=== PATIENT | male | born 1975 | race Caucasian/White ===

== ENCOUNTER 2021-03-13 13:46 | Inpatient (IN) | payer BC ==
[~2021-03-13] VITALS: Ht 193 cm; Wt 124.7 kg
[~2021-03-13 13:46] MED LIST: ALBU90OI INH
[2021-03-13 14:50] LABS: BASOPHILS PERCENT AUTO 0 % (0-2); EOSINOPHILS PERCENT AUTO 0 % (0-6); Hematocrit 43.2 % (37.0-53.0); Hemoglobin 15.3 g/dL (13.5-17.5); IMMATURE GRAN ABSOLUTE AUTO 0.03 K/mm3 (0.00-0.10); IMMATURE GRAN PERCENT AUTO 1 % (0-1); LYMPHOCYTES ABSOLUTE AUTO 0.38 K/mm3 (0.84-5.20); LYMPHOCYTES PERCENT AUTO 8 % (21-46); MONOCYTES PERCENT AUTO 4 % (4-13); Mean Corpuscular HGB 30.1 pg (26.0-34.0); Mean Corpuscular HGB Conc 35.4 g/dL (31.5-36.5); Mean Corpuscular Volume 85 fL (80-100); Mean Platelet Volume 9.7 fL (9.1-12.4); NEUTROPHILS ABSOLUTE AUTO 4.46 K/mm3 (1.96-9.15); NEUTROPHILS PERCENT AUTO 88 % (41-73); Platelet Count 171 K/mm3 (150-400); RDW Coefficient Variation 11.7 % (11.7-14.2); RDW Standard Deviation 35.8 fL (35.1-46.3); Red Blood Cell Count 5.09 M/mm3 (4.30-5.90); White Blood Cell Count 5.07 K/mm3 (4.00-11.30)
[2021-03-13 15:11] LABS: Alanine Aminotransfer (ALT/SGP 50 U/L (12-78); Albumin, Blood 3.1 g/dL (3.4-5.0); Albumin/Globulin Ratio 0.8 (0.8-1.8); Alk Phos 68 U/L (50-136); Anion Gap 6 mmol/L (6-16); Aspartate Aminotrans (AST/SGOT 63 U/L (12-37); Bilirubin, Total 0.5 mg/dL (0.1-1.0); Blood Urea Nitrogen 14 mg/dL (8-24); Bun/Creatinine Ratio 13.7 (12.0-20.0); CO2, Blood 24 mmol/L (21-32); Calcium, Blood 8.7 mg/dL (8.5-10.1); Chloride, Blood 101 mmol/L (98-108); Creatinine, Blood 1.02 mg/dL (0.60-1.20); Globulin, Blood 4.1 g/dL (2.2-4.0); Glomerular Filtration Rate >60 (60-); Glucose, Blood 106 mg/dL (70-99); Magnesium, Blood 2.1 mg/dL (1.6-2.4); Potassium, Blood 3.9 mmol/L (3.5-5.5); Sodium, Blood 131 mmol/L (136-145); Total Protein, Blood 7.2 g/dL (6.4-8.2); Troponin I <0.015 ng/mL (0.000-0.040)
[2021-03-13] MEDS ORDERED: TERB250 PO (15:50)
[2021-03-13] MEDS ORDERED: Ventolin5 MG/1 ML NEB (15:53)
[2021-03-13 16:59] LABS: PCO2 Arterial 30 mmHg (35-45); PO2 Arterial 69 mmHg (80-100); pH Blood Arterial 7.48 (7.35-7.45)
--- NOTE | 2021-03-13 18:30 | NUR ---
SHIFT SUMMARY PATIENT IS AN ADMIT FROM ER WHOM ARRIVED APPROX 1750. STARTED THE FIRST COURSE OF REMDESIVIR TODAY. NORMAL SALINE RUNNING 75ML/HR. PATIENT IS RESTING COMFORTABLY IN ROOM. PATIENT ORIENTED TO ROOM AND CALL LIGHT. PATIENT HAS NO ACUTE RESPIRATORY DISTRESS. PATIENT IS SATTING LOW 90S ON 6 LITERS OF OXYGEN.
[2021-03-14 04:31] LABS: Hematocrit 40.6 % (37.0-53.0); Hemoglobin 14.4 g/dL (13.5-17.5); Mean Corpuscular HGB 29.9 pg (26.0-34.0); Mean Corpuscular HGB Conc 35.5 g/dL (31.5-36.5); Mean Corpuscular Volume 84 fL (80-100); Mean Platelet Volume 9.5 fL (9.1-12.4); Platelet Count 168 K/mm3 (150-400); RDW Coefficient Variation 11.8 % (11.7-14.2); RDW Standard Deviation 36.2 fL (35.1-46.3); Red Blood Cell Count 4.81 M/mm3 (4.30-5.90); White Blood Cell Count 4.51 K/mm3 (4.00-11.30)
[2021-03-14 04:55] LABS: Alanine Aminotransfer (ALT/SGP 54 U/L (12-78); Albumin, Blood 2.7 g/dL (3.4-5.0); Albumin/Globulin Ratio 0.7 (0.8-1.8); Alk Phos 66 U/L (50-136); Anion Gap 8 mmol/L (6-16); Aspartate Aminotrans (AST/SGOT 64 U/L (12-37); Bilirubin, Total 0.4 mg/dL (0.1-1.0); Blood Urea Nitrogen 13 mg/dL (8-24); Bun/Creatinine Ratio 15.2 (12.0-20.0); CO2, Blood 23 mmol/L (21-32); Calcium, Blood 7.9 mg/dL (8.5-10.1); Chloride, Blood 103 mmol/L (98-108); Creatinine, Blood 0.85 mg/dL (0.60-1.20); Globulin, Blood 4.1 g/dL (2.2-4.0); Glomerular Filtration Rate >60 (60-); Glucose, Blood 114 mg/dL (70-99); Magnesium, Blood 2.1 mg/dL (1.6-2.4); Potassium, Blood 4.2 mmol/L (3.5-5.5); Sodium, Blood 134 mmol/L (136-145); Total Protein, Blood 6.8 g/dL (6.4-8.2)
--- NOTE | 2021-03-14 05:55 | NUR ---
SUMMARY PT HAS SOME ANGELO GOING TO BATHROOM. PT ENCOURAGED TO USE URINAL NEEDED. PT IS ON 6LPM O2. NO FEVERS NOTED THIS SHIFT. PT HAD SOME NOTED INCREASED ANXIETY AT TIMES. PT STATES HE IS CONCERNED ABOUT HAVING COVID. PT WAS ABLE TO RELAX AND SLEEP WELL FOR REMAINDER OF SHIFT. PT CURRENTLY SLEEPING AND IN NO DISTRESS. CALL LIGHT IN REACH.
--- NOTE | 2021-03-14 11:32 | NUR ---
Spiritual care visit provided and although the patient wasn't interested in prayer or discussion of anything of a confucianism nature, I did encourage him that he was doing well and he was in the right place to receive the care he needed. He thanked me for the visit and we left it at that.
--- NOTE | 2021-03-14 17:15 | NUR ---
SHIFT SUMMARY PATIENT ALERT AND ORIENTED THROUGHOUT THIS SHIFT. PATIENT INDEPENDENT IN THE ROOM. PATIENT HAS BEEN SITTING UP IN BED THROUGHOUT THIS SHIFT. PATIENT MAINTAINING O2 SAT >90 ON 5L O2 NC. NO ACUTE CHANGES THIS SHIFT. VSS.
[2021-03-15 05:23] LABS: Hematocrit 42.9 % (37.0-53.0); Hemoglobin 14.4 g/dL (13.5-17.5); Mean Corpuscular HGB 29.4 pg (26.0-34.0); Mean Corpuscular HGB Conc 33.6 g/dL (31.5-36.5); Mean Corpuscular Volume 88 fL (80-100); Mean Platelet Volume 9.6 fL (9.1-12.4); Platelet Count 221 K/mm3 (150-400); RDW Standard Deviation 38.5 fL (35.1-46.3); White Blood Cell Count 5.16 K/mm3 (4.00-11.30)
[2021-03-15 05:55] LABS: Alanine Aminotransfer (ALT/SGP 68 U/L (12-78); Albumin, Blood 2.8 g/dL (3.4-5.0); Albumin/Globulin Ratio 0.7 (0.8-1.8); Alk Phos 63 U/L (50-136); Anion Gap 7 mmol/L (6-16); Aspartate Aminotrans (AST/SGOT 55 U/L (12-37); Bilirubin, Direct 0.2 mg/dL (0.0-0.3); Bilirubin, Indirect 0.2 mg/dL (0.1-0.7); Bilirubin, Total 0.4 mg/dL (0.1-1.0); Blood Urea Nitrogen 19 mg/dL (8-24); Bun/Creatinine Ratio 19.4 (12.0-20.0); CO2, Blood 28 mmol/L (21-32); Calcium, Blood 8.5 mg/dL (8.5-10.1); Chloride, Blood 102 mmol/L (98-108); Creatinine, Blood 0.98 mg/dL (0.60-1.20); Globulin, Blood 4.1 g/dL (2.2-4.0); Glomerular Filtration Rate >60 (60-); Glucose, Blood 116 mg/dL (70-99); Phosphorus, Blood 3.7 mg/dL (2.5-4.9); Potassium, Blood 4.4 mmol/L (3.5-5.5); Sodium, Blood 137 mmol/L (136-145); Total Protein, Blood 6.9 g/dL (6.4-8.2)
[2021-03-16 11:55] LABS: BASOPHILS ABSOLUTE AUTO 0.01 K/mm3 (0.00-0.23); BASOPHILS PERCENT AUTO 0 % (0-2); EOSINOPHILS PERCENT AUTO 0 % (0-6); Hematocrit 43.3 % (37.0-53.0); IMMATURE GRAN ABSOLUTE AUTO 0.04 K/mm3 (0.00-0.10); IMMATURE GRAN PERCENT AUTO 1 % (0-1); LYMPHOCYTES ABSOLUTE AUTO 0.42 K/mm3 (0.84-5.20); LYMPHOCYTES PERCENT AUTO 6 % (21-46); MONOCYTES ABSOLUTE AUTO 0.67 K/mm3 (0.16-1.47); MONOCYTES PERCENT AUTO 9 % (4-13); Mean Corpuscular HGB Conc 34.6 g/dL (31.5-36.5); Mean Corpuscular Volume 87 fL (80-100); Mean Platelet Volume 9.3 fL (9.1-12.4); NEUTROPHILS ABSOLUTE AUTO 6.26 K/mm3 (1.96-9.15); NEUTROPHILS PERCENT AUTO 85 % (41-73); Platelet Count 268 K/mm3 (150-400); RDW Standard Deviation 38.3 fL (35.1-46.3)
[2021-03-16 12:19] LABS: Alanine Aminotransfer (ALT/SGP 79 U/L (12-78); Albumin, Blood 2.8 g/dL (3.4-5.0); Albumin/Globulin Ratio 0.7 (0.8-1.8); Alk Phos 66 U/L (50-136); Anion Gap 6 mmol/L (6-16); Aspartate Aminotrans (AST/SGOT 50 U/L (12-37); Bilirubin, Total 0.6 mg/dL (0.1-1.0); Blood Urea Nitrogen 21 mg/dL (8-24); Bun/Creatinine Ratio 25.2 (12.0-20.0); CO2, Blood 28 mmol/L (21-32); Calcium, Blood 8.2 mg/dL (8.5-10.1); Chloride, Blood 103 mmol/L (98-108); Creatinine, Blood 0.83 mg/dL (0.60-1.20); Glomerular Filtration Rate >60 (60-); Glucose, Blood 111 mg/dL (70-99); Magnesium, Blood 2.3 mg/dL (1.6-2.4); Potassium, Blood 4.2 mmol/L (3.5-5.5); Sodium, Blood 137 mmol/L (136-145); Total Protein, Blood 6.8 g/dL (6.4-8.2)
--- NOTE | 2021-03-17 05:07 | NUR ---
SUMMARY PT REMAINS ON 15 LPM. SPO2 >95% THIS AM. PT ANXIETY REDUCED W/ MEDICATION. PT C/O DIARRHEA AND TX PER EMAR. PT CONTINUES TO GET SOB W/ EXERTION. PT SLEPT OFF AND ON T/O SHIFT. PT CURRENTLY SLEEPING AND IN NO DISTRESS. CALL LIGHT IN REACH.
--- NOTE | 2021-03-17 05:51 | NUR ---
THIS AM PT REPORTS FEELING FATIGUED. PT STATES HE FEELS HE IS NOT SLEEPING AT ALL. PT MIGHT BENEFIT FROM A DIFFERENT SLEEP AID. PT REPORTS ANXIETY IS REDUCED BUT STILL APPEARS ANXIOUS.
--- NOTE | 2021-03-18 06:07 | NUR ---
SHIFT SUMMARY A/OX4, IND TO BATHROOM. CURRENTLY ON 15L HIGH FLOW WITH SATS GREATER THAN 90. C/O DIFFICULTY SLEEPING T/O NIGHT. VSS, NO ACUTE CHANGES AT THIS TIME. BED IN LOWEST POSITION WITH CALL LIGHT IN REACH. WILL CONTINUE TO MONITOR AND REPORT TO ONCOMING RN.
--- NOTE | 2021-03-18 16:56 | NUR ---
SHIFT SUMMARY PATIENT IS A/O, INDEPENDENT IN THE ROOM. PATIENT DOWN TO 12L O2 HIGH FLOW NC FROM 15L, SATS IN THE MID 90S. NO ACUTE CHANGES THIS SHIFT. PATIENT UP IN THE ROOM WALKING SEVERAL TIMES THIS SHIFT. PATIENT CURRENTLY SITTING UP IN BED WATCHING HIS TABLET.
--- NOTE | 2021-03-19 06:00 | NUR ---
SHIFT SUMMARY: AOX3, 1 ASSIST, USES URINAL AT BEDSIDE INDEPENDENTLY. DENIES PAIN. LUNG SOUNDS CRACKLES T/O. ABLE TO TAKE SOME DEEP BREATHS, COUGH IS PRODUCTIVE OCCATIONALLY. ON 15L OXIMIZER. DYSPNEA WITH LITTLE MOVEMENT. DID STATES HE HAS GOTTEN UP IN THE ROOM AND WILL DROP SOME BUT HE IS RECOVERING QUICKER. ENCOURAGED SMALL MOVEMENTS TO BUILD UP HIS ENDURANCE. CURRENTLY HOLDING 94-95%. VSS, AFEBRILE. SPOKE TO MOTHER ON PHONE, ARRANGED FOR HER TO CALL AT NIGHT ONLY, IF SHE WANTS INFORMATION DURING THE DAY SHE IS TO CALL HER SON, SHE VERBALIZED UNDERSTANDING OF THIS. CALL LIGHT IS IN REACH.
--- NOTE | 2021-03-19 19:34 | NUR ---
PT ALERT AND ORIENTED X4. REMAINS ON 15L WITH OXEMIZER. DESATS WHEN AMBULATING, RECOVERS 90% AND ABOVE. WILL CONT. TO MONITOR.
[2021-03-20 05:46] LABS: BASOPHILS ABSOLUTE AUTO 0.02 K/mm3 (0.00-0.23); BASOPHILS PERCENT AUTO 0 % (0-2); EOSINOPHILS ABSOLUTE AUTO 0.16 K/mm3 (0.00-0.68); EOSINOPHILS PERCENT AUTO 3 % (0-6); Hemoglobin 14.7 g/dL (13.5-17.5); IMMATURE GRAN ABSOLUTE AUTO 0.14 K/mm3 (0.00-0.10); IMMATURE GRAN PERCENT AUTO 2 % (0-1); LYMPHOCYTES ABSOLUTE AUTO 0.81 K/mm3 (0.84-5.20); LYMPHOCYTES PERCENT AUTO 13 % (21-46); MONOCYTES ABSOLUTE AUTO 0.72 K/mm3 (0.16-1.47); MONOCYTES PERCENT AUTO 12 % (4-13); Mean Corpuscular HGB 29.9 pg (26.0-34.0); Mean Corpuscular HGB Conc 34.2 g/dL (31.5-36.5); Mean Corpuscular Volume 87 fL (80-100); Mean Platelet Volume 9.1 fL (9.1-12.4); NEUTROPHILS ABSOLUTE AUTO 4.37 K/mm3 (1.96-9.15); NEUTROPHILS PERCENT AUTO 70 % (41-73); Platelet Count 395 K/mm3 (150-400); RDW Coefficient Variation 11.8 % (11.7-14.2); RDW Standard Deviation 37.8 fL (35.1-46.3); Red Blood Cell Count 4.92 M/mm3 (4.30-5.90); White Blood Cell Count 6.22 K/mm3 (4.00-11.30)
[2021-03-20 06:19] LABS: Anion Gap 6 mmol/L (6-16); Blood Urea Nitrogen 20 mg/dL (8-24); Bun/Creatinine Ratio 19.2 (12.0-20.0); CO2, Blood 27 mmol/L (21-32); Calcium, Blood 8.7 mg/dL (8.5-10.1); Chloride, Blood 103 mmol/L (98-108); Creatinine, Blood 1.04 mg/dL (0.60-1.20); Glomerular Filtration Rate >60 (60-); Glucose, Blood 92 mg/dL (70-99); Potassium, Blood 4.2 mmol/L (3.5-5.5); Sodium, Blood 136 mmol/L (136-145)
--- NOTE | 2021-03-20 06:59 | NUR ---
SHIFT SUMMARY: CONTINUES TO BE ON 15 LITERS OXIMIZER. DOES DESAT IN AM UPON WAKING DUE TO STUFFY NOSE AND PHLYEM. ONCE HE CLEARS IT OUT SATS DO GO UP. TOLERATING MORE MOVEMENT IN THE ROOM WITH HEALTHY DESATS AND QUICK RECOVERY. LUNG SOUNDS STILL CRACKLES MID TO LOWER LOBES. ENCOURAGED DEEP BREATHING WHILE IN BED AND LAYING ON SIDE. NO OTHER ACUTE CHANGES TO NOTE. CALL LIGHT IN REACH.
--- NOTE | 2021-03-20 19:44 | NUR ---
SUMM- PT INDEPENDANT IN ROOM, GETS UP TO CHAIR AND BATHROOM. NO SOB WITH ACTIVITY. ABLE TO DECREASE OXIMIZER FROM 15L TO 8L. FAINT CX IN BASES, COUGHING UP CLEAR [place]/FAITH SECRETIONS. USES SALINE FOR NOSE AND BLOWS NOSE. TOLERATING FOOD AND FLUID.
--- NOTE | 2021-03-21 05:41 | NUR ---
SHIFT SUMMARY: DECREASE IN OXYGEN USE TO 8 LITERS ON OXIMIZER. SATS HOLDING AT 94% AND HIGHER. IS ABLE TO MOVE WITH NO DESATING. LUNG SOUNDS HAVE IMPROVED, VERY FINE CRACKLES SCATTERED T/O. VERY LITTLE PRODUCTION OF COUGH. BUILDING ENDURANCE ON HIS OWN AND WITH PT. NO ACUTE CHANGES THIS SHIFT. CALL LIGHT IN REACH.
--- NOTE | 2021-03-21 20:51 | NUR ---
SUMM- PT INDEPENDANT IN ROOM. RESP EVEN UNLABORED. AMBULATES IN ROOM, TOOK SHOWER, MIN SOB. LUNGS WITH FAINT CX BASES, OXYMIZER DOWN TO 6L, SATTING MID 90'S. TOLERATING FOOD AND FLUIDS.
--- NOTE | 2021-03-22 07:50 | NUR ---
SHIFT SUMMARY: NO ACUTE CHANGES. DOWN TO 5 L OXIMIZER HOLDING MID-90'S. WAS IN THE 80'S THIS AM DUE TO STUFFED UP NOSE, TYPICALLY CLEARS AFTER HE CLEARS HIS NOSE. ABLE TO SLEEP ON HIS BACK WITH NO ISSUES. IS READY TO GO HOME WITH HOME O2. VS WNL. CALL LIGHT IN REACH.
[2021-03-22] MEDS ORDERED: APHEN325 M1 PO (14:59)
[2021-03-22] MEDS ORDERED: Q-Tussin100 MG/5 M PO (15:00)
[2021-03-22] MEDS ORDERED: GUAI600T33 PO (15:02)
[2021-03-22] MEDS ORDERED: NASAL SPRAY88 ML (15:02)
--- NOTE | 2021-03-22 16:54 | NUR ---
HOME O2 STUDY. PT SATS 88% AT REST ON 0 LPM. PT O2 SATS ON NO OXYGEN WHEN UP AMBULATING 92%. PT REPORTS HE WANTS HOME O2 DUE TO COVID DIAGNOSIS AND SOB WITH EXERTION.
--- NOTE | 2021-03-22 16:56 | NUR ---
DC NOTE: PT DISCHARGED HOME WITH PORTABLE O2 TANK. PT DC INSTRUCTIONS REVIEWED. PT VU. PT BELONGINGS WITH PT. PT ESCORTED TO POV VIA WC, PICKED UP AT [facility] WITHOUT INCIDENT.
== END 2021-03-22 16:43 | disposition home or self-care (01) | DRG 871 ==
LOC: ER 13:46 → MEDS 16:01
PROVIDERS: Nurse Practitioner Acute Care; Student in an Organized Health Care Education/Training Program; ADMIT Internal Medicine
PROC: 8E0ZXY6 Isolation (ICD-10-PCS; principal; 2021-03-13)
PROC: XW033E5 Introduction of Remdesivir Anti-infective into Peripheral Vein, Percutaneous Approach, New Technology Group 5 (ICD-10-PCS; 2021-03-13)
PROC: 3E0333Z Introduction of Anti-inflammatory into Peripheral Vein, Percutaneous Approach (ICD-10-PCS; 2021-03-13)
DX: A41.89 Other specified sepsis (principal); J96.01 Acute respiratory failure with hypoxia; U07.1 COVID-19; J12.89 Other viral pneumonia; E87.1 Hypo-osmolality and hyponatremia; Z90.49 Acquired absence of other specified parts of digestive tract; Z79.899 Other long term (current) drug therapy; R65.20 Severe sepsis without septic shock; Z68.33 Body mass index [BMI] 33.0-33.9, adult; R94.5 Abnormal results of liver function studies; F41.9 Anxiety disorder, unspecified; E66.01 Morbid (severe) obesity due to excess calories; G47.9 Sleep disorder, unspecified; J45.909 Unspecified asthma, uncomplicated; R74.01 Elevation of levels of liver transaminase levels
CPT/HCPCS: 36415; 36600; 71045; 71260; 80048; 80053; 82248; 82803; 83605; 83735; 83880; 84100; 84145; 84484; 85025; 85027; 93005; 93010; 94640; 94664; 94760; 94762; 96374; 99285-25; A9270; J1100; J1650; J1940; J7050; Q9967